=== PATIENT | female | born 1940 | race Caucasian/White ===

== ENCOUNTER 2016-10-28 17:14 | Emergency (ER) | payer OTHER, BC ==
[2016-10-28 17:20] VITALS: BP 134/62; PULSE 63; TEMP 98.3; BMI 22.6
--- NOTE | 2016-10-28 17:53 | PDOC ---
History of Present Illness - History of Present Illness Initial Comments: 10/28/16 17:56 The patient is a 76 year old female s/p left knee replacement (10 years ago) with a past medical hx of thyroid cancer who presents to the ED complaining of left knee pain for two days. The patient reports her knee has been feeling fine up until two days ago. She is requesting an X-Ray. She denies any radiation of pain, numbness or tingling to her left lower extremity. Surgery: Left knee replacement (10 years ago) <Tarcy Claire - Last Filed: 10/28/16 17:56> - History of Present Illness Initial Comments: 10/28/16 17:58 Patient is weightbearing and ambulating without any noticeable difficulty. Gait is steady and there is no limp. She is not favoring her left leg, though complains of mild tightness with full extension Physical exam reveals no deformity, swelling, effusion, point tenderness, erythema, or warmth. There is mild stress tenderness over the MCL. The other ligaments are normal. There is no instability of the knee. Distal pulses are full. No distal sensory or motor deficits. Knee immobilizer was applied. The patient was much more comfortable and ambulating without pain. There was no distal numbness tingling pain or weakness , pulses were, foot was warm, and motion of the ankle foot and toes with full She was instructed on the use of the knee immobilizer, local care of the knee, and the use of Advil or Motrin. She will follow-up with her orthopedist in several days if the pain persists. Fully ambulatory and without significant pain or other discomfort upon discharge to follow-up as directed <Cj Cunningham - Last Filed: 10/28/16 18:01> - General Chief Complaint: Pain Stated Complaint: LEFT KNEE PAIN Time Seen by Provider: 10/28/16 17:50 Past History <Tracy Claire - Last Filed: 10/28/16 17:56> - Past Medical History Cardiac Disorders: Yes (A-FIB (INTERMITTENT)) HTN: Yes Hypercholesterolemia: Yes Thyroid Disease: Yes (RADIATIVE IODIDE AND ALSO THYROIDECTOMY) - Surgical History Cardiac Surgery: Yes (ABLATION) - Psycho/Social/Smoking Cessation Hx Anxiety: No Suicidal Ideation: No Smoking History: Unknown if ever smoked Hx Alcohol Use: Yes (SOCIAL) Drug/Substance Use Hx: No Substance Use Type: None <Cj Cunningham - Last Filed: 10/28/16 18:01> - Past Medical History Allergies/Adverse Reactions: Allergies Allergy/AdvReac Type Severity Reaction Status Date / Time Penicillins Allergy Intermediate Hives Verified 10/28/16 17:16 Sulfa (Sulfonamide Allergy Intermediate Hives Verified 10/28/16 17:16 Antibiotics) adhesive tape Allergy Mild Rash Verified 10/28/16 17:16 Home Medications: Ambulatory Orders Aspirin [ASA -] 81 mg PO DAILY 02/09/16 Atorvastatin Ca [Lipitor] 10 mg PO Q48H 02/09/16 Famotidine [Pepcid] 40 mg PO DAILY 02/09/16 Levothyroxine [Synthroid -] 150 mcg PO DAILY 02/09/16 Metoprolol Succinate [Toprol Xl -] 12.5 mg PO BID 02/09/16 Propafenone HCl [Rythmol Sr] 325 mg PO BID 02/09/16 Review of Systems - Review of Systems Able to Perform ROS?: Yes Comments:: 10/28/16 17:57 MUSCULOSKELETAL: +Left knee pain NEUROLOGIC: Absent: numbness, tingling <Tracy Claire - Last Filed: 10/28/16 17:56> *Physical Exam - Vital Signs Last Vital Signs Temp Pulse Resp BP Pulse Ox 98.3 F 63 18 134/62 96 10/28/16 17:15 10/28/16 17:15 10/28/16 17:15 10/28/16 17:15 10/28/16 17:15 <Tracy Claire - Last Filed: 10/28/16 17:56> - Vital Signs Last Vital Signs Temp Pulse Resp BP Pulse Ox 98.3 F 63 18 134/62 96 10/28/16 17:15 10/28/16 17:15 10/28/16 17:15 10/28/16 17:15 10/28/16 17:15 <Cj Cunningham - Last Filed: 10/28/16 18:01> *DC/Admit/Observation/Transfer - Attestations Scribe Attestion: 10/28/16 17:57 Documentation prepared by Tracy Claire, acting as district medical examiner for Cj Iqbal MD/DO. <Tracy Claire - Last Filed: 10/28/16 17:56> - Discharge Dispostion Admit: No <Cj Cunningham - Last Filed: 10/28/16 18:01> Diagnosis at time of Disposition: Knee sprain Qualifiers: Encounter type: initial encounter Involved ligament of knee: medial collateral ligament Laterality: left Qualified Code(s): S83.412A - Sprain of medial collateral ligament of left knee, initial encounter - Discharge Dispostion Disposition: HOME Condition at time of disposition: Stable - Patient Instructions Printed Discharge Instructions: DI for Knee Sprain, How to Use a Knee Immobilizer
== END 2016-10-28 17:55 | disposition home or self-care (01) ==
LOC: FER 17:14
PROC: 2W3RX1Z Immobilization of Left Lower Leg using Splint (ICD-10-PCS; principal; 2016-10-28)
DX: S83.412A Sprain of medial collateral ligament of left knee, initial encounter (principal); X58.XXXA Exposure to other specified factors, initial encounter; Y93.9 Activity, unspecified; Y92.9 Unspecified place or not applicable; I48.91 Unspecified atrial fibrillation; I10 Essential (primary) hypertension; E78.00 Pure hypercholesterolemia, unspecified; E07.9 Disorder of thyroid, unspecified
CPT/HCPCS: 29515; 99283-25